=== PATIENT | male | born 1955 | race Caucasian/White ===

== ENCOUNTER 2021-08-10 10:24 | Outpatient (CLI) | payer MEDICARE, OTHER, SELFPAY ==
--- NOTE | ~2021-08-10 | MR_ITS ---
EXAMINATION: MR shoulder LT wo con DATE: 08/10/2021 11:26 INDICATION: Chronic left shoulder pain. TECHNIQUE: Magnetic resonance imaging (MRI) of the left shoulder was performed without intravenous co ntrast. Sequences included axial PD-weighted FS FSE, coronal oblique PD-weighted FS FSE and T2-weight ed FS FSE, and sagittal oblique T2-weighted FS FSE and T1-weighted FSE. COMPARISON: None. FINDINGS: Coracoacromial arch: The acromion undersurface is curved in morphology (type II). 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 There is mild subacromial/subdeltoid bursitis. Rotator cuff: There is severe supraspinatus tendinopathy. There is an articular-sided, partial-thickness tear of gardner praspinatus tendon measuring 7 mm anterior to posterior by 6 mm proximal to distal by 40% tendon thic kness. There is mild infraspinatus tendinopathy. Teres minor tendon is normal. There is a partial tea r of subscapularis tendon. There is no asymmetric fatty atrophy of the rotator cuff muscle bellies. Biceps tendon and glenoid labrum: There is a partial tear of proximal biceps tendon. A portion of the tendon is medially displaced into the subscapularis tendon tear. There is widespread tearing of the glenoid labrum. Fluid: There is a moderate-sized glenohumeral joint effusion. Bones/cartilage: There is partial-thickness cartilage loss of glenoid and humeral head. IMPRESSION: 1. Partial-thickness tears of supraspinatus and subscapularis tendons. 2. Partial tear of proximal biceps tendon, a portion of which is medially displaced into the subscapu radames tendon tear. 3. Mild glenohumeral joint chondrosis. 4. Severe acromioclavicular joint osteoarthritis. 5. Moderate-sized glenohumeral joint effusion. 6. Mild subacromial/subdeltoid bursitis. Reviewed, dictated and finalized at location A. IMPRESSION: 1. Partial-thickness tears of supraspinatus and subscapularis tendons. 2. Partial tear of proximal biceps tendon, a portion of which is medially displ aced into the subscapularis tendon tear. 3. Mild glenohumeral joint chondrosis. 4. Severe acromioclavicular joint osteoarthritis. 5. Moderate-sized glenohumeral joint effusion. 6. Mild subacromial/subdeltoid bursitis.
== END 2021-08-10 10:25 | disposition home or self-care (01) ==
PROVIDERS: Visit Provider Orthopaedic Surgery
DX: M19.012 Primary osteoarthritis, left shoulder (principal); M75.52 Bursitis of left shoulder; M25.412 Effusion, left shoulder
CPT/HCPCS: 73221